=== PATIENT | female | born 1935 | race Caucasian/White ===

== ENCOUNTER 2018-05-19 11:57 | Inpatient (IN) | payer MEDICARE ==
[~2018-05-19] VITALS: Ht 167.6 cm; Wt 79.8 kg
[2018-05-19 13:31] VITALS: BP 193/57
[2018-05-19 15:00] VITALS: BP 179/71
[2018-05-19 15:41] LABS: BASO # 0.1 x10^3/uL (0.0-0.2); BASO % 1 % (0-3); EOS % 1 % (0-3); HEMATOCRIT 35.6 % (36.0-47.0); HEMOGLOBIN 11.8 g/dL (12.0-15.5); LYMPH # 1.7 x10^3/uL (1.0-4.8); LYMPH % 20 % (24-48); MEAN CORPUSCULAR HEMOGLOBIN 31 pg (25-35); MEAN CORPUSCULAR HGB CONC 33 g/dL (31-37); MEAN CORPUSCULAR VOLUME 95 fL (79-100); MONO # 0.6 x10^3/uL (0.0-1.1); MONO % 7 % (0-9); NEUT # 6.3 x10^3uL (1.8-7.7); NEUT % 72 % (31-73); PLATELET COUNT 285 x10^3/uL (140-400); RED BLOOD COUNT 3.74 x10^6/uL (3.50-5.40); RED CELL DISTRIBUTION WIDTH 13.3 % (11.5-14.5); WHITE BLOOD COUNT 8.8 x10^3/uL (4.0-11.0)
[2018-05-19 16:16] LABS: ALBUMIN 3.7 g/dL (3.4-5.0); CALCIUM 8.8 mg/dL (8.5-10.1); CREATININE 0.9 mg/dL (0.6-1.0); GFR 59.9; POTASSIUM 3.9 mmol/L (3.5-5.1); TOTAL BILIRUBIN 0.3 mg/dL (0.2-1.0); TOTAL PROTEIN 7.5 g/dL (6.4-8.2)
[2018-05-19 16:59] LABS: BILIRUBIN,URINE NEGATIVE (NEG); CLARITY,URINE CLEAR; COLOR,URINE YELLOW; NITRITE,URINE NEGATIVE (NEG); PROTEIN,URINE NEGATIVE (NEG-TRACE); UROBILINOGEN,URINE 0.2 mg/dL (0.2 mg/dL)
[2018-05-19 17:01] LABS: BACTERIA,URINE 0 /HPF (0-FEW); SQUAMOUS EPITHELIAL CELL,UR FEW /LPF; WBC,URINE OCC /HPF (0-4)
--- NOTE | 2018-05-19 17:38 | HP ---
ADMIT DATE: 05/19/2018 CHIEF COMPLAINT AND HISTORY OF PRESENT ILLNESS: This 83-year-old white female is well known to me from followup in the office. The patient was seen on the day of admission with symptoms beginning the prior. Symptoms were right facial as well as right arm and right leg numbness that would occur up to 15 minutes at a time. There was some weakness of at least the right leg associated with this. There was no particular speech deficit she noted with it. She had in the last 24 hours at least 5 or 6 of these episodes. She had taken aspirin the night prior to admission and feels like things have slowed down somewhat on the day of admission. She felt she was having crescendo TIAs, admitted for neurological consultation as well as imaging of heart, carotid arteries, head, etc. PAST MEDICAL HISTORY: Essentially unremarkable. She has no chronic medical problems home. MEDICATIONS: Basically some cokm-fix-oxpgokq preparations. ALLERGIES: She has no known drug allergies. SOCIAL HISTORY: She is nonsmoker, nondrinker, does not abuse alcohol. FAMILY HISTORY: Noncontributory. REVIEW OF SYSTEMS: As mentioned above. PHYSICAL EXAMINATION: GENERAL: She is well-developed, well-nourished, pleasant white female in no acute distress. VITAL SIGNS: Stable. She is afebrile. Blood pressure in the office is 130/85. HEAD, EYES, EARS, NOSE AND THROAT: Unremarkable. NECK: Supple without bruit or thyromegaly. I can hear no carotid bruits bilaterally. CHEST: Clear to auscultation and percussion. HEART: Regular rate and rhythm without S3, S4 or murmur. ABDOMEN: Soft, nontender, without hepatosplenomegaly or mass. EXTREMITIES: Without cyanosis, clubbing, or edema. NEUROLOGIC: She is intact. IMPRESSION: Crescendo transient ischemic attacks as described above. PLAN: The patient has been admitted. She has aspirin on board. Neurology has been consulted. Appropriate imaging is being obtained and the patient will be monitored, managed and treated appropriately. SHANTI LINDSEY MD DR: JARETH/elza JOB#: [id number] / [id number]
--- NOTE | 2018-05-19 19:00 | NUR ---
During walking report rounds with dayshift nurse, Dr. Henley is in room doing nuero check on Patient as she has c/o tinging and numbness to the right side of her face, neck, arm and leg which is aware off and has instructed this nurse to continue charting each episode as patient reports it thru out the night.
[2018-05-19 19:30] VITALS: BP 182/70
--- NOTE | 2018-05-19 20:30 | PDOC2 ---
NEUROLOGY CONSULT Date of Admission Date of Admission DATE: 05/19/18 TIME: 20:20 Reason for Consult Reason for Consult: IMPRESSION: Recurrent intermittent right side numbness and tingling x 4 days. CVA syndrome. TIA likely. HTN. Aortic A disease? RECOMMENDATIONS/PLAN: ASA 325 mg daily. Carotid A US + Doppler. Statin HS. Brain MRI w/o contrast. Echo. Lab: see orders. Control BP. HISTORY OF THE PRESENT ILLNESS: 83-y-old female patient stated no significant PMH developed symptoms of numbness and tingling in her right side of va face, UE and LE lasted 2-3 minutes each time the longest one lasted for 8-10 minutes multiple times a week in the past 4 days day. She was concerned about stroke, so she took 4 of baby ASA and came to [facility] to seek medical attention today. PAST MEDICAL HISTORY: Unremarkable. PAST SURGERY HISTORY: No major surgery recently. MEDICATIONS: Owlp-zus-rjoflyj preparations. ALLERGIES: No known drug allergies. FAMILY HISTORY: Noncontributory. MEDICATIONS: Refer to [facility] SOCIAL HISTORY: Lives at home. Denies smoking, drinking, and illicit drug use. REVIEW OF SYSTEMS: Constitutional: No malnutrition, weight loss, cachexia. Head: No traumatic brain or head injury. Skin: No edema, or rash. Ear: No infection. Eyes: No vision loss or color blindness. Nose: No bleeding or purulent discharges. Hearing: No hearing decrease. Neck: No injury. Breast: No history of cancer, masses,or discharges. Cardiac: HTN. Pulmonary: No COPD. GI: No GI ulcer, GI bleeding. Urinary/genital: UTI. Endocrinologic: No cousin face, craniofacial dysmorphism, polydactyly, goiter. Skeletomuscular: No muscular atrophy, deformity. Neurological: see HP. Psychiatric: Denies drug use/abuse. Otherwise, not [id number] review of systems. PHYSICAL EXAMINATION: General appearance is in no acute distress. HEENT: Normocephalic and nontraumatic. Eyes, nose, ears, and throat are unremarkable. Neck is supple. No lymphadenopathy. No crepitus. Cardiovascular: S1, S2, regular rate and rhythm. Pulmonary: Clear to auscultation bilaterally. Abdomen: Bowel sounds are positive. Abdomen is soft, nontender, and nondistended. Extremities: No rash, lesions, or edema. No restriction of range of motion NEUROLOGICAL EXAMINATION: Alert Oriented to time, place and person. PERRL. EOMI. CN: no focal findings. Muscle tone: within normal. Muscle strength: 5 DTR: 2 Plantar reflex: Flexor response bilaterally Gait: not examined in bed. Sensory exam: no abnormal findings. No cerebellar signs elicited. F-T-N test accurate. Current Medications Current Medications Current Medications Diphenhydramine HCl (Benadryl) 50 mg PRN QHS PRN PO INSOMNIA; Start 05/19/18 at 21:00 Multivitamins (Thera M Plus) 1 tab DAILY PO ; Start 05/20/18 at 09:00 Allergies Allergies: Allergies Coded Allergies Type Severity Reaction Last Updated Verified No Known Drug Allergies 05/19/18 No ROS Review of System The patient denies any associated fevers, chills, headache, ear pain, rhinorrhea , sore throat, stiff neck, productive cough, chest pain, shortness of breath, back or flank pain, abdominal pain, nausea, vomiting, diarrhea, constipation, dysuria, rash, numbness, weakness, tingling, incontinence, difficulty ambulating, or diaphoresis. Physical Exam Physical Exam General: Well developed, well nourished, no acute distress, well appearing HEENT: Pupils equally round and reactive to light, EOMI, no discharge, normal conjunctiva Neck: Supple, no nuchal rigidity, no JVD, trachea midline, no tenderness Cardiac: RRR, no murmurs, no gallops, no rubs Chest/Lungs: CTAB, no wheeze, no rhonchi, no crackles Abdomen: soft, non-distended, no guarding, no peritoneal signs, non-tender Back: No tenderness Extremities: no edema, pulses intact, non-tender,capillary refill <3 sec bilateral upper and lower extremities, Neuro: Alert and oriented x 4, no focal deficits, normal speech Vitals Vitals: Vital Signs Date Time Temp Pulse Resp B/P (MAP) Pulse Ox O2 Delivery O2 Flow Rate FiO2 05/19/18 19:30 98.5 74 20 182/70 (107) 97 Room Air 98.5 Labs Labs Laboratory Tests Test 05/19/18 15:35 05/19/18 16:20 White Blood Count 8.8 x10^3/uL (4.0-11.0) Red Blood Count 3.74 x10^6/uL (3.50-5.40) Hemoglobin 11.8 g/dL (12.0-15.5) Hematocrit 35.6 % (36.0-47.0) Mean Corpuscular Volume 95 fL (79-100) Mean Corpuscular Hemoglobin 31 pg (25-35) Mean Corpuscular Hemoglobin Concent 33 g/dL (31-37) Red Cell Distribution Width 13.3 % (11.5-14.5) Platelet Count 285 x10^3/uL (140-400) Neutrophils (%) (Auto) 72 % (31-73) Lymphocytes (%) (Auto) 20 % (24-48) Monocytes (%) (Auto) 7 % (0-9) Eosinophils (%) (Auto) 1 % (0-3) Basophils (%) (Auto) 1 % (0-3) Neutrophils # (Auto) 6.3 x10^3uL (1.8-7.7) Lymphocytes # (Auto) 1.7 x10^3/uL (1.0-4.8) Monocytes # (Auto) 0.6 x10^3/uL (0.0-1.1) Eosinophils # (Auto) 0.0 x10^3/uL (0.0-0.7) Basophils # (Auto) 0.1 x10^3/uL (0.0-0.2) Erythrocyte Sedimentation Rate 30 (0-25) Sodium Level 141 mmol/L (136-145) Potassium Level 3.9 mmol/L (3.5-5.1) Chloride Level 103 mmol/L (98-107) Carbon Dioxide Level 24 mmol/L (21-32) Anion Gap 14 (6-14) Blood Urea Nitrogen 27 mg/dL (7-20) Creatinine 0.9 mg/dL (0.6-1.0) Estimated GFR (Cockcroft-Gault) 59.9 BUN/Creatinine Ratio 30 (6-20) Glucose Level 109 mg/dL (70-99) Calcium Level 8.8 mg/dL (8.5-10.1) Total Bilirubin 0.3 mg/dL (0.2-1.0) Aspartate Amino Transf (AST/SGOT) 20 U/L (15-37) Alanine Aminotransferase (ALT/SGPT) 23 U/L (14-59) Alkaline Phosphatase 75 U/L (46-116) Total Protein 7.5 g/dL (6.4-8.2) Albumin 3.7 g/dL (3.4-5.0) Albumin/Globulin Ratio 1.0 (1.0-1.7) Vitamin B12 Level 477 pg/mL (247-911) Thyroid Stimulating Hormone (TSH) 3.422 uIU/mL (0.358-3.74) Urine Collection Type Unknown Urine Color Yellow Urine Clarity Clear Urine pH 6.0 Urine Specific [place] 1.025 Urine Protein Negative mg/dL (NEG-TRACE) Urine Glucose (UA) Negative mg/dL (NEG) Urine Ketones (Stick) Negative mg/dL (NEG) Urine Blood Negative (NEG) Urine Nitrite Negative (NEG) Urine Bilirubin Negative (NEG) Urine Urobilinogen Dipstick 0.2 mg/dL (0.2 mg/dL) Urine Leukocyte Esterase Negative (NEG) Urine RBC 1-2 /HPF (0-2) Urine WBC Occ /HPF (0-4) Urine Squamous Epithelial Cells Few /LPF Urine Bacteria 0 /HPF (0-FEW) Urine Mucus Mod /LPF Laboratory Tests Test 05/19/18 15:35 05/19/18 16:20 White Blood Count 8.8 x10^3/uL (4.0-11.0) Red Blood Count 3.74 x10^6/uL (3.50-5.40) Hemoglobin 11.8 g/dL (12.0-15.5) Hematocrit 35.6 % (36.0-47.0) Mean Corpuscular Volume 95 fL (79-100) Mean Corpuscular Hemoglobin 31 pg (25-35) Mean Corpuscular Hemoglobin Concent 33 g/dL (31-37) Red Cell Distribution Width 13.3 % (11.5-14.5) Platelet Count 285 x10^3/uL (140-400) Neutrophils (%) (Auto) 72 % (31-73) Lymphocytes (%) (Auto) 20 % (24-48) Monocytes (%) (Auto) 7 % (0-9) Eosinophils (%) (Auto) 1 % (0-3) Basophils (%) (Auto) 1 % (0-3) Neutrophils # (Auto) 6.3 x10^3uL (1.8-7.7) Lymphocytes # (Auto) 1.7 x10^3/uL (1.0-4.8) Monocytes # (Auto) 0.6 x10^3/uL (0.0-1.1) Eosinophils # (Auto) 0.0 x10^3/uL (0.0-0.7) Basophils # (Auto) 0.1 x10^3/uL (0.0-0.2) Erythrocyte Sedimentation Rate 30 (0-25) Sodium Level 141 mmol/L (136-145) Potassium Level 3.9 mmol/L (3.5-5.1) Chloride Level 103 mmol/L (98-107) Carbon Dioxide Level 24 mmol/L (21-32) Anion Gap 14 (6-14) Blood Urea Nitrogen 27 mg/dL (7-20) Creatinine 0.9 mg/dL (0.6-1.0) Estimated GFR (Cockcroft-Gault) 59.9 BUN/Creatinine Ratio 30 (6-20) Glucose Level 109 mg/dL (70-99) Calcium Level 8.8 mg/dL (8.5-10.1) Total Bilirubin 0.3 mg/dL (0.2-1.0) Aspartate Amino Transf (AST/SGOT) 20 U/L (15-37) Alanine Aminotransferase (ALT/SGPT) 23 U/L (14-59) Alkaline Phosphatase 75 U/L (46-116) Total Protein 7.5 g/dL (6.4-8.2) Albumin 3.7 g/dL (3.4-5.0) Albumin/Globulin Ratio 1.0 (1.0-1.7) Vitamin B12 Level 477 pg/mL (247-911) Thyroid Stimulating Hormone (TSH) 3.422 uIU/mL (0.358-3.74) Urine Collection Type Unknown Urine Color Yellow Urine Clarity Clear Urine pH 6.0 Urine Specific [place] 1.025 Urine Protein Negative mg/dL (NEG-TRACE) Urine Glucose (UA) Negative mg/dL (NEG) Urine Ketones (Stick) Negative mg/dL (NEG) Urine Blood Negative (NEG) Urine Nitrite Negative (NEG) Urine Bilirubin Negative (NEG) Urine Urobilinogen Dipstick 0.2 mg/dL (0.2 mg/dL) Urine Leukocyte Esterase Negative (NEG) Urine RBC 1-2 /HPF (0-2) Urine WBC Occ /HPF (0-4) Urine Squamous Epithelial Cells Few /LPF Urine Bacteria 0 /HPF (0-FEW) Urine Mucus Mod /LPF CHANG HOOD MD May 19, 2018 20:30
[2018-05-19] MEDS ORDERED: diphenhydrAMINE HCL 25 MG CAPSULE PO PRN (21:00)
--- NOTE | 2018-05-19 21:00 | NUR ---
Patient had another episode and c/o having some numbness and tinging to her right side of her face and neck for a few minutes and then it subsided.
[2018-05-19 23:49] VITALS: BP 167/57
--- NOTE | 2018-05-20 01:40 | NUR ---
Patient called again and reported that she again had an episode of having some numbness and tinging on her face and neck, this nurse assess patient each time she called and she has clear speech, no facial drooping, she is up with slow steady gait noted, does c/o some head ache which is tolerable at a 2 to 3 on a scale of 0 to 10 with 10 being the worst and always hungry, food provide and she blames it on lack of sleep, Benadryl administered as order but not effective per patient statement, "I think part of it is because this is just not home."
[2018-05-20 03:24] VITALS: BP 150/49
[2018-05-20 05:01] LABS: CHOLESTEROL/HDL RATIO 3.7
[2018-05-20 07:25] VITALS: BP 177/65
--- NOTE | 2018-05-20 07:55 | RAD ---
EXAM: Carotid Doppler sonogram. HISTORY: Transient ischemic attack. TECHNIQUE: [place] scale and color Doppler sonographic evaluation of the neck with spectral waveform analysis was performed and static images are submitted for review. FINDINGS: There is kbci-ii-arbybdvr atherosclerotic plaque within the carotid bulbs and proximal internal and external carotid arteries. The peak systolic velocity within the right common carotid artery is 130 cm/sec. The peak systolic velocity within the right internal carotid artery is 88 cm/sec and the end diastolic velocity within the right internal carotid artery is 30 cm/sec. The right ICA/CCA ratio is 1.0. The peak systolic velocity within the left common carotid artery is 93 cm/sec. The peak systolic velocity within the left internal carotid artery is 91 cm/sec and the end diastolic velocity within the left internal carotid artery is 32 cm/sec. The left ICA/CCA ratio is 1.0. There is normal antegrade flow within both vertebral arteries. There is an elevated peak systolic velocity within the right external carotid artery measuring 237 cm/s. IMPRESSION: 1. No Doppler evidence of hemodynamically significant stenosis within the internal carotid or vertebral arteries. 2. Elevated peak systolic velocity within the right external carotid artery, suggesting hemodynamically significant stenosis. PQRS Compliance Statement - Stenosis calculations for CT, MR and conventional angiography are based upon measurement of the distal ICA diameter in accordance with the NASCET methodology. Stenosis calculations for carotid ultrasound studies are derived from validated velocity criteria which are known to correlate with the NASCET methodology. Electronically signed by: Fela Wallace MD (05/20/2018 7:50 AM) [id number]
[2018-05-20] MEDS ORDERED: ACETAMINOPHEN 325 MG TABLET. PO PRN (09:00)
--- NOTE | 2018-05-20 10:28 | RAD ---
EXAM: Brain MRI without contrast. HISTORY: Right arm numbness. TECHNIQUE: Multiplanar, multisequence magnetic resonance imaging of the brain was performed without contrast. COMPARISON: None. FINDINGS: There is no restricted diffusion to suggest acute or subacute infarction. There are few tiny foci of susceptibility effect within the occipital lobes which may be artifactual or due to chronic microhemorrhage. There is no mass effect or midline shift. There is no hydrocephalus. There are nonspecific foci of signal change within the cerebral white matter, likely due to chronic small vessel disease. There is evidence of lens surgery. There is a tiny right maxillary sinus because retention cyst. The mastoid air cells are clear. There are normal flow voids within the cerebral vessels. IMPRESSION: 1. No acute intracranial finding. 2. Scattered foci of signal change within the cerebral white matter, a nonspecific finding likely due to chronic small vessel disease. Electronically signed by: Fela Wallace MD (05/20/2018 10:25 AM) [id number]
[2018-05-20 11:36] VITALS: BP 156/58
--- NOTE | 2018-05-20 12:42 | CARD ---
MR#: [id number] Date of Study: 05/20/2018 Ordering Physician: SHANTI LINDSEY, Referring Physician: SHANTI LINDSEY, Tech: Neda Dallas SALVADOR APPROVED REPORT EXAM: Two-dimensional and M-mode echocardiogram with Doppler and color Doppler. Other Information Quality : GoodHR: 71bpm Rhythm : NSR INDICATION CVA/TIA 2D DIMENSIONS RVDd3.0 (2.9-3.5cm)Left Atrium(2D)3.6 (1.6-4.0cm) IVSd1.0 (0.7-1.1cm)Aortic Root(2D)2.7 (2.0-3.7cm) LVDd4.7 (3.9-5.9cm)LVOT Diameter1.8 (1.8-2.4cm) PWd0.7 (0.7-1.1cm)LVDs2.7 (2.5-4.0cm) FS (%) 42.9 %SV75.9 ml LVEF(%)70.0 (>50%) M-Mode DIMENSIONS Left Atrium(MM)4.07 (2.5-4.0cm)Aortic Root2.86 (2.2-3.7cm) Aortic Valve AoV Peak Daniel.125.6cm/sAoV VTI24.1cm AO Peak GR.6.3mmHgLVOT Peak Daniel.90.9cm/s AO Mean GR.2mmHgAVA (VMAX)1.76cm2 DEISY (VTI)1.60nn8OR P 1/2 Iwkt636te Mitral Valve MV E Gwxeboni405.4cm/sMV DECEL TANW609rk MV A Wwwzvyuk58.8cm/sE/A Ratio1.7 MV A Safjaglh49ei Pulmonary Valve PV Peak Nivuitdp99.8cm/s Tricuspid Valve TR P. Ncblmkml295wn/sRAP IQOHZHXU9zwCg TR Peak Gr.62quYcPMMS55duZy LEFT VENTRICLE The left ventricle is normal size. There is normal left ventricular wall thickness. The left ventricu lar systolic function is normal and the ejection fraction is within normal range. The Ejection Fracti on is 65-70%. There is normal LV segmental wall motion. Transmitral Doppler flow pattern is Grade II- pseudonormal filling dynamics. RIGHT VENTRICLE The right ventricle is normal size. There is normal right ventricular wall thickness. The right ventr icular systolic function is normal. ATRIA The left atrium size is normal. The right atrium size is normal. The interatrial septum is intact wit h no evidence for an atrial septal defect or patent foramen ovale as noted on 2-D or Doppler imaging. AORTIC VALVE The aortic valve is calcified but opens well. The aortic valve is trileaflet. Doppler and Color Flow revealed mild aortic regurgitation. There is no significant aortic valvular stenosis. There is no aor tic valvular vegetation. MITRAL VALVE The mitral valve is normal in structure and function. A borderline mitral valve prolapse is present. There is no mitral valve stenosis. Doppler and Color-flow revealed trace mitral regurgitation. TRICUSPID VALVE The tricuspid valve is normal in structure and function. Doppler and Color Flow revealed trace to mil d tricuspid regurgitation.There is mild pulmonary hypertension.The PA pressure was estimated at 36 mm Hg. There is no tricuspid valve prolapse or vegetation. There is no tricuspid valve stenosis. PULMONIC VALVE The pulmonic valve is not well visualized. Doppler and Color Flow revealed no pulmonic valvular regur gitation. There is no pulmonic valvular stenosis. GREAT VESSELS The aortic root is normal in size. The ascending aorta is normal in size. The IVC is normal in size a nd collapses >50% with inspiration. PERICARDIAL EFFUSION There is no evidence of significant pericardial effusion. Critical Notification Critical Value: No <Conclusion> The left ventricular systolic function is normal and the ejection fraction is within normal range. Th e Ejection Fraction is 65-70%. There is normal LV segmental wall motion. Doppler and Color Flow revealed mild aortic regurgitation. Doppler and Color Flow revealed trace to mild tricuspid regurgitation.There is mild pulmonary hyperte nsion.The PA pressure was estimated at 36 mmHg. Signed by : Negro Roldan, Electronically Approved : 05/20/2018 12:42:02
[2018-05-20] MEDS: ASPIRIN 325 MG TABLET PO SCH (12:47)
[2018-05-20] MEDS: MULTIVITAMIN with MINERAL TABLET. PO SCH (12:47)
--- NOTE | 2018-05-20 14:45 | NUR ---
Received report from night nurse that patient will be NPO prior to imaging procedure. Patient underwent MRI and 2d echo this morning. Morning meds given during lunch. She reports 2 episodes of numbness and tingling of her right face, arm and leg which lasted for 5 minutes and spontaneously resolved at 1300, assessment reveals no facial droop, focal weakness/ sensory deficits. Patient has clear speech, pupils brisk, reactive. Neuro service came at 1400 and assessed patient. We will continue to monitor.
[2018-05-20 15:00] VITALS: BP 143/65
--- NOTE | 2018-05-20 17:21 | PDOC ---
PROGRESS NOTES Assessment Assessment Recurrent intermittent right side numbness and tingling x 4 days before admission. HTN. HLD. Right maxillary retention cyst. No evidence of acute CVA this time. RECOMMENDATIONS/PLAN: CCT w/o contrast. ASA 325 mg daily. Zocor 20 mg HS. Neurontin 100 mg bid. Control BP. Treat medical diseases. HISTORY OF THE PRESENT ILLNESS: 83-y-old female patient stated no significant PMH developed symptoms of numbness and tingling in her right side of va face, UE and LE lasted 2-3 minutes each time the longest one lasted for 8-10 minutes multiple times a week in the past 4 days day. She was concerned about stroke, so she took 4 of baby ASA and came to [facility] to seek medical attention today. PAST MEDICAL HISTORY: Unremarkable. PAST SURGERY HISTORY: No major surgery recently. MEDICATIONS: Ejly-tvt-nuwuemz preparations. ALLERGIES: No known drug allergies. FAMILY HISTORY: Noncontributory. MEDICATIONS: Refer to [facility] SOCIAL HISTORY: Lives at home. Denies smoking, drinking, and illicit drug use. REVIEW OF SYSTEMS: Constitutional: No malnutrition, weight loss, cachexia. Head: No traumatic brain or head injury. Skin: No edema, or rash. Ear: No infection. Eyes: No vision loss or color blindness. Nose: No bleeding or purulent discharges. Hearing: No hearing decrease. Neck: No injury. Breast: No history of cancer, masses,or discharges. Cardiac: HTN. Pulmonary: No COPD. GI: No GI ulcer, GI bleeding. Urinary/genital: UTI. Endocrinologic: No cousin face, craniofacial dysmorphism, polydactyly, goiter. Skeletomuscular: No muscular atrophy, deformity. Neurological: see HP. Psychiatric: Denies drug use/abuse. Otherwise, not [id number] review of systems. PHYSICAL EXAMINATION: General appearance is in no acute distress. HEENT: Normocephalic and nontraumatic. Eyes, nose, ears, and throat are unremarkable. Neck is supple. No lymphadenopathy. No crepitus. Cardiovascular: S1, S2, regular rate and rhythm. Pulmonary: Clear to auscultation bilaterally. Abdomen: Bowel sounds are positive. Abdomen is soft, nontender, and nondistended. Extremities: No rash, lesions, or edema. No restriction of range of motion NEUROLOGICAL EXAMINATION: Alert Oriented to time, place and person. PERRL. EOMI. CN: no focal findings. Muscle tone: within normal. Muscle strength: 5 DTR: 2 Plantar reflex: Flexor response bilaterally Gait: not examined in bed. Sensory exam: no abnormal findings. No cerebellar signs elicited. F-T-N test accurate. Objective Objective Vital Signs Date Time Temp Pulse Resp B/P (MAP) Pulse Ox O2 Delivery O2 Flow Rate FiO2 05/20/18 15:00 97.7 73 18 143/65 (91) 96 Room Air 97.7 Intake and Output 05/20/18 07:00 Intake Total 550 ml Balance 550 ml Intake Oral 550 ml # Voids 2 Vitals Signs Vitals VS - Last 72 Hours, by Label Date Time Temp Pulse Resp B/P (MAP) Pulse Ox O2 Delivery O2 Flow Rate FiO2 05/20/18 15:00 97.7 73 18 143/65 (91) 96 Room Air 97.7 05/20/18 11:36 97.7 69 18 156/58 (90) 97 Room Air 97.7 05/20/18 08:00 Room Air 05/20/18 07:25 97.9 72 18 177/65 (102) 96 Room Air 97.9 05/20/18 03:24 98.1 82 18 150/49 (82) 95 Room Air 98.1 05/19/18 23:49 98.4 77 20 167/57 (93) 94 Room Air 98.4 05/19/18 20:00 Room Air 05/19/18 19:30 98.5 74 20 182/70 (107) 97 Room Air 98.5 05/19/18 15:00 97.5 72 16 179/71 (107) 98 Room Air 97.5 05/19/18 13:31 97.5 74 18 193/57 (102) 98 Room Air 97.5 Laboratory Laboratory Laboratory Tests Test 05/20/18 03:20 Triglycerides Level 49 mg/dL (0-150) Cholesterol Level 230 mg/dL (0-200) LDL Cholesterol, Calculated 158 mg/dL (0-100) VLDL Cholesterol, Calculated 10 mg/dL (0-40) Non-HDL Cholesterol Calculated 168 mg/dL (0-129) HDL Cholesterol 62 mg/dL (40-60) Cholesterol/HDL Ratio 3.7 Medication Medications Current Medications Acetaminophen (Tylenol) 650 mg PRN Q6HRS PRN PO headache Last administered on 12:47; Start 05/20/18 at 09:00 Aspirin (Manuel Aspirin) 325 mg DAILYWBKFT PO Last administered on 05/20/18 12: 47; Start 05/20/18 at 08:00 Diphenhydramine HCl (Benadryl) 50 mg PRN QHS PRN PO INSOMNIA Last administered on 05/19/18 22:51; Start 05/19/18 at 21:00 Multivitamins (Thera M Plus) 1 tab DAILY PO Last administered on 05/20/18 12: 47; Start 05/20/18 at 09:00 Simvastatin (Zocor) 20 mg HS PO ; Start 05/20/18 at 21:00 Zolpidem Tartrate (Ambien) 5 mg PRN QHS PRN PO INSOMNIA; Start 05/20/18 at 09: 00 Comment Review of Relevant I have reviewed the following items vernon (where applicable) has been applied. CHANG HOOD MD May 20, 2018 17:21
--- NOTE | 2018-05-20 18:04 | NUR ---
Paged Attending at 1730, updated with patient's BP trend and diagnostic tests. No new orders received; will continue to monitor patient.
[2018-05-20 19:55] VITALS: BP 169/70
--- NOTE | 2018-05-20 20:46 | PDOC ---
GENERAL General: vss and afebrile. awake and alert. ongoing episodes of right sided numbness. bp little elevated. MRI head negative, carotid dopplers negative, and echo normal. neuro help appreciated. chest clear, heart regular, and abdomen benign. neuro nonfocal. await ct cervical spine and will consider EEG if no answer there. VITAL SIGNS Vital Signs: Vital Signs Date Time Temp Pulse Resp B/P (MAP) Pulse Ox O2 Delivery O2 Flow Rate FiO2 05/20/18 19:55 98.0 76 20 169/70 (103) 96 Room Air 98.0 I & O I & O Intake and Output 05/20/18 07:00 Intake Total 550 ml Balance 550 ml Intake Oral 550 ml # Voids 2 ALLERGIES Allergies: Allergies Coded Allergies Type Severity Reaction Last Updated Verified No Known Drug Allergies 05/19/18 No MEDS Medications: Current Medications Medications (Trade) Dose Ordered Sig/Ramon Start Time Stop Time Status Last Admin Dose Admin Acetaminophen (Tylenol) 650 mg PRN Q6HRS PRN 05/20/18 09:00 05/20/18 12:47 650 MG Aspirin (Manuel Aspirin) 325 mg [id number] 05/20/18 08:00 05/20/18 12:47 325 MG Diphenhydramine HCl (Benadryl) 50 mg PRN QHS PRN 05/19/18 21:00 05/19/18 22:51 50 MG Gabapentin (Neurontin) 100 mg BID 05/20/18 21:00 Multivitamins (Thera M Plus) 1 tab DAILY 05/20/18 09:00 05/20/18 12:47 1 TAB Simvastatin (Zocor) 20 mg HS 05/20/18 21:00 Zolpidem Tartrate (Ambien) 5 mg PRN QHS PRN 05/20/18 09:00 LAB Lab: Laboratory Tests Test 05/20/18 03:20 Triglycerides Level 49 mg/dL (0-150) Cholesterol Level 230 mg/dL (0-200) LDL Cholesterol, Calculated 158 mg/dL (0-100) VLDL Cholesterol, Calculated 10 mg/dL (0-40) Non-HDL Cholesterol Calculated 168 mg/dL (0-129) HDL Cholesterol 62 mg/dL (40-60) Cholesterol/HDL Ratio 3.7 SHANTI LINDSEY MD May 20, 2018 20:46
[2018-05-20] MEDS: ZOLPIDEM 5 MG TABLET. PO PRN (21:14)
[2018-05-20] MEDS: SIMVASTATIN 20 MG TABLET PO SCH (21:14)
[2018-05-20] MEDS: GABAPENTIN 100 MG CAPSULE. PO SCH (21:14)
[2018-05-20 23:18] VITALS: BP 141/49
[2018-05-21 07:15] VITALS: BP 152/65
[2018-05-21] MEDS: ASPIRIN 325 MG TABLET PO SCH (08:00)
--- NOTE | 2018-05-21 08:14 | RAD ---
CT of the cervical spine without contrast, 05/20/2018: HISTORY: Right-sided tingling Noncontrast scans were obtained with multiplanar reconstructions produced. No fracture or subluxation is identified. There are moderate hypertrophic degenerative changes involving multiple facet joints bilaterally. There is moderate disc space narrowing with anterior and posterior marginal spurring at C5-6 and C6-7. At C5-6 there is mild to moderate posterior disc protrusion at the midline narrowing the thecal sac to down to an AP diameter of 5-6 mm at the midline. There is mild right foraminal encroachment due to the spurring at this level. The posterior disc margin at C6-7 is not clearly visualized due to artifacts, however, there is a suggestion of right lateral disc protrusion encroaching upon the right neural foramina. There is mild left foraminal narrowing at this level. There appears to be mild central spinal stenosis at this level. There is mild posterior disc bulging at C3-4. The central spinal canal is well maintained. There is mild to moderate bony foraminal narrowing on the right. At C4-5 there is mild posterior disc bulging and marginal spurring. There is borderline narrowing of the central spinal canal. IMPRESSION: 1. Moderate multilevel degenerative change as described above. 2. Moderate associated central spinal stenosis at C5-6. 3. Mild central spinal stenosis at C6-7 with probable right lateral disc protrusion at that level. 4. MR scanning is suggested for further evaluation, if clinically indicated. PQRS Compliance Statement: One or more of the following individualized dose reduction techniques were utilized for this examination: 1. Automated exposure control 2. Adjustment of the mA and/or kV according to patient size 3. Use of iterative reconstruction technique Electronically signed by: Gonzalo Combs MD (05/21/2018 8:11 AM) [facility]
[2018-05-21] MEDS: GABAPENTIN 100 MG CAPSULE. PO SCH ×2 (08:53→20:22)
[2018-05-21] MEDS: MULTIVITAMIN with MINERAL TABLET. PO SCH (08:54)
[2018-05-21] MEDS ORDERED: ANTI-COAG MONITOR BY PHARMACY. MC PRN (09:00)
[2018-05-21] MEDS: APIXABAN 5 MG TABLET. PO SCH ×2 (09:31→20:22)
[2018-05-21 11:04] VITALS: BP 136/61
--- NOTE | 2018-05-21 11:39 | PDOC ---
Provider Note Provider Note MRI ordered will see patient when MRI complete MARY CANELA MD May 21, 2018 11:39
--- NOTE | 2018-05-21 12:08 | NUR ---
Attempted to coordinate MRA imaging per Dr. Mcgee's free text nursing order, however, when this nurse contacted MRI personnel they indicated need for authorization by neurology thus Dr. Henley contacted, who advised against imaging and asked to contact Dr. Paniagua. Dr Hicks was supervisor operations and advised contacting Dr. Henley. With this, Dr. Mcgee was contacted by phone for clarification on communication/authorization protocol for imaging procedures. Advised contacting Dr. Henley to coordinate.
[2018-05-21] MEDS ORDERED: GADOBUTROL 7.5 MMOL/7.5 ML VIAL IV ONE (12:45)
--- NOTE | 2018-05-21 13:12 | RAD ---
EXAM: Cervical spine MRI without contrast. HISTORY: Stenosis. TECHNIQUE: Multiplanar, multisequence magnetic resonance imaging of the cervical spine was performed without contrast. COMPARISON: CT dated 05/20/2018. FINDINGS: There is cervical kyphosis centered at C5-C6. There is minimal anterolisthesis of C3 on C4 and C4 on C5. There is degenerative endplate remodeling with disc space narrowing, osteophytosis and Schmorl's node formation at C5-C6 and C6-C7. There are few incidental osseous hemangiomas. There is no suspicious osseous lesion. There is no acute or subacute fracture. The posterior fossa and skull base are unremarkable. There is deformation of the cervical spinal cord at multiple levels due to central canal stenosis. No spinal cord signal abnormality is seen. At C2-C3, there is moderate right facet arthropathy. There is no stenosis. At C3-C4, there is a shallow broad-based posterior central disc protrusion. There is moderate right greater than left facet arthropathy. There is mild right foraminal stenosis. At C4-C5, there is a shallow left paracentral disc protrusion which deforms the left ventral aspect of the spinal cord. The superimposed on endplate remodeling. There is mild bilateral facet arthropathy. There is mild central canal stenosis measuring 9.0 mm in anterior posterior dimension. At C5-C6, there is a disc bulge and endplate osteophytosis. There is mild facet arthropathy. There is uncovertebral arthropathy. There is severe right foraminal stenosis. There is flattening of the ventral aspect of the spinal cord and moderate central canal stenosis measuring 7.1 mm in anterior posterior dimension. At C6-C7, there is a disc bulge and endplate osteophytosis. There is mild right facet arthropathy. There is uncovertebral body. There is mild bilateral foraminal stenosis. There is flattening of the ventral aspect of the spinal cord and mild central canal stenosis measuring 9.0 mm in anterior posterior dimension. IMPRESSION: 1. Multilevel degenerative change within the cervical spine, described in detail above. This results in mild right foraminal stenosis at C3-C4, mild central canal stenosis at C4-C5, severe right foraminal and moderate central canal stenosis at C5-C6, and mild bilateral foraminal and central canal stenosis at C6-C7. 2. Mild cervical kyphosis. Electronically signed by: Fela Wallace MD (05/21/2018 1:09 PM) [email or web address]
--- NOTE | 2018-05-21 13:18 | RAD ---
EXAM: Brain MRI with contrast. HISTORY: Right-sided facial numbness. TECHNIQUE: Multiplanar, multisequence magnetic resonance imaging of the brain was performed following the administration of 70 cc Gadavist intravenous contrast. COMPARISON: Noncontrast images of the brain obtained one day prior. FINDINGS: No suspicious enhancing lesion is seen. There is no mass effect or midline shift. There is no hydrocephalus. IMPRESSION: 1. No acute intracranial finding or abnormal enhancing intracranial lesion. 2. Please refer to the separate report for the noncontrast brain and right obtained one day prior for additional findings. Electronically signed by: Fela Wallace MD (05/21/2018 1:15 PM) [email or web address]
[2018-05-21 15:09] VITALS: BP 177/67
--- NOTE | 2018-05-21 16:00 | NUR ---
SW following pt for anticipated dc needs. Chart reviewed. Pt is from home. RN advised no SW needs at this time. SW requested DAVE Barry to order PT/OT eval and tx order as recommended by rehab screen. Will continue to assess needs.
--- NOTE | 2018-05-21 17:14 | PDOC ---
PROGRESS NOTES Assessment Assessment Recurrent intermittent right side numbness and tingling x 4 days before admission. HTN. HLD. Right maxillary retention cyst which may cause symptoms in her right side of face. 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 No evidence of acute CVA this time. No evidence of brain tumor. RECOMMENDATIONS/PLAN: ASA 325 mg daily. Zocor 20 mg HS. Neurontin 200 mg tid. Control BP. Treat medical diseases. Consulted NS for C-spine stenosis. See ENT as outpatient. FU with PCP. HISTORY OF THE PRESENT ILLNESS: 83-y-old female patient stated no significant PMH developed symptoms of numbness and tingling in her right side of the face, UE and LE lasted 2-3 minutes each time the longest one lasted for 8-10 minutes multiple times a week in the past 4 days day. She was concerned about stroke, so she took 4 of baby ASA and came to [facility] to seek medical attention today. PAST MEDICAL HISTORY: Unremarkable. PAST SURGERY HISTORY: No major surgery recently. MEDICATIONS: Wihn-pjd-ghenynh preparations. ALLERGIES: No known drug allergies. FAMILY HISTORY: Noncontributory. MEDICATIONS: Refer to MAR SOCIAL HISTORY: Lives at home. Denies smoking, drinking, and illicit drug use. REVIEW OF SYSTEMS: Constitutional: No malnutrition, weight loss, cachexia. Head: No traumatic brain or head injury. Skin: No edema, or rash. Ear: No infection. Eyes: No vision loss or color blindness. Nose: No bleeding or purulent discharges. Hearing: No hearing decrease. Neck: No injury. Breast: No history of cancer, masses,or discharges. Cardiac: HTN. Pulmonary: No COPD. GI: No GI ulcer, GI bleeding. Urinary/genital: UTI. Endocrinologic: No cousin face, craniofacial dysmorphism, polydactyly, goiter. Skeletomuscular: No muscular atrophy, deformity. Neurological: see HP. Psychiatric: Denies drug use/abuse. Otherwise, not [id number] review of systems. PHYSICAL EXAMINATION: General appearance is in no acute distress. HEENT: Normocephalic and nontraumatic. Eyes, nose, ears, and throat are unremarkable. Neck is supple. No lymphadenopathy. No crepitus. Cardiovascular: S1, S2, regular rate and rhythm. Pulmonary: Clear to auscultation bilaterally. Abdomen: Bowel sounds are positive. Abdomen is soft, nontender, and nondistended. Extremities: No rash, lesions, or edema. No restriction of range of motion NEUROLOGICAL EXAMINATION: Alert Oriented to time, place and person. PERRL. EOMI. CN: no focal findings. Muscle tone: within normal. Muscle strength: 5 DTR: 2 Plantar reflex: Flexor response bilaterally Gait: not examined in bed. Sensory exam: no abnormal findings. No cerebellar signs elicited. F-T-N test accurate. Objective Objective Vital Signs Date Time Temp Pulse Resp B/P (MAP) Pulse Ox O2 Delivery O2 Flow Rate FiO2 05/21/18 15:09 97.8 70 18 177/67 (103) 98 Room Air 97.8 Intake and Output 05/21/18 07:00 Intake Total 700 ml Balance 700 ml Intake Oral 700 ml Vitals Signs Vitals VS - Last 72 Hours, by Label Date Time Temp Pulse Resp B/P (MAP) Pulse Ox O2 Delivery O2 Flow Rate FiO2 05/21/18 15:09 97.8 70 18 177/67 (103) 98 Room Air 97.8 05/21/18 11:04 97.8 77 18 136/61 (86) 97 Room Air 97.8 05/21/18 08:00 Room Air 05/21/18 07:15 97.9 66 16 152/65 (94) 96 Room Air 97.9 05/20/18 23:18 98.2 74 18 141/49 (79) 93 Room Air 98.2 05/20/18 20:00 Room Air 05/20/18 19:55 98.0 76 20 169/70 (103) 96 Room Air 98.0 05/20/18 15:00 97.7 73 18 143/65 (91) 96 Room Air 97.7 05/20/18 11:36 97.7 69 18 156/58 (90) 97 Room Air 97.7 05/20/18 08:00 Room Air 05/20/18 07:25 97.9 72 18 177/65 (102) 96 Room Air 97.9 Medication Medications Current Medications Apixaban (Eliquis) 5 mg BID PO Last administered on 05/21/18at 09:31; Start at 09:00 Gabapentin (Neurontin) 100 mg BID PO Last administered on 05/20/18at 21:14; Start 05/20/18 at 21:00; Stop 05/21/18 at 16:55; Status DC Gabapentin (Neurontin) 200 mg TID PO ; Start 05/21/18 at 21:00 Gadobutrol (Gadavist) 7 mmol 1X ONCE IV Last administered on 05/21/18at 13:04; Start 05/21/18 at 12:45; Stop 05/21/18 at 12:46; Status DC Info (Anti-Coagulation Monitoring By Pharmacy) 1 each PRN DAILY PRN MC SEE COMMENTS; Start 05/21/18 at 09:00 Simvastatin (Zocor) 20 mg HS PO Last administered on 05/20/18at 21:14; Start at 21:00 Comment Review of Relevant I have reviewed the following items vernon (where applicable) has been applied. CHANG HOOD MD May 21, 2018 17:14
--- NOTE | 2018-05-21 17:53 | EEG ---
DATE OF SERVICE: 05/21/2018 EEG NUMBER: [id number]. OBJECTIVE: This is an 83-year-old female patient with history of intermittent numbness, tingling in the right side of face, and stroke was ruled out. EEG was requested to help rule out partial seizure. METHODS: Twenty electrodes were applied according to the international 10-20 electrode placement system. EKG monitoring, hyperventilation, intermittent photic stimulation, monopolar and bipolar montages were routinely utilized. The record was obtained on a digital system with video monitoring. FINDINGS: 1. Background: The patient was recorded in the awake, drowsy, and sleep states. The overall background amplitude is 5-15 microvolts. A posterior dominant rhythm of 8 Hz is observed. 2. Abnormalities: No specific epileptiform discharge or electrographic seizure is seen. No focal or diffuse slowing. 3. Activation: Hyperventilation was performed with good efforts and normal response. Intermittent photic stimulation was performed with photic driving. Photoparoxysmal response noted. IMPRESSION: This EEG is within the normal limits of the study for the awake, drowsy, and sleep states. No focal, lateralizing, specific epileptiform discharge or electrographic seizure is seen. CHANG HOOD MD DR: DAX/elza JOB#: [id number] / [id number] [place]
[2018-05-21 19:56] VITALS: BP 175/62
[2018-05-21] MEDS: SIMVASTATIN 20 MG TABLET PO SCH (20:22)
--- NOTE | 2018-05-21 20:30 | PN ---
DATE: 05/21/2018 LOCATION: She is in room 663. SUBJECTIVE: The patient is awake, alert, continues to have ongoing spells of right-sided numbness, which involve arm, leg and face. OBJECTIVE: VITAL SIGNS: Stable. She is afebrile. GENERAL: She is awake and alert. LUNGS: Clear. HEART: Regular. ABDOMEN: Benign. NEUROLOGIC: Nonfocal. LABORATORY DATA: MRI of the head was negative. Carotid Dopplers were negative. Echocardiogram was negative. CT cervical spine pending, although I doubt this is the etiology with the facial numbness. IMPRESSION: Crescendo transient ischemic attack type of event. PLAN: I am going to add Eliquis today even though probably is not indicated to see if this would stop the process. In addition, I am going to request an MRI of the brain as well as EEG to rule out some sort of strange seizure activity. SHANTI LINDSEY MD DR: JARETH/elza JOB#: [id number] / [id number]
[2018-05-21] MEDS: ZOLPIDEM 5 MG TABLET. PO PRN (22:51)
[2018-05-21 23:31] VITALS: BP 166/55
--- NOTE | 2018-05-22 07:09 | NUR ---
Pt refusing 0400 vitals tonight and states wanting to sleep. Vitals have been wnl. No complaints noted. Pt ambulating in [place] with steady gait. Pt states having 1 episode of numbness and tingling on right side however still able to move arm without complaints.
[2018-05-22 07:45] VITALS: BP 172/57
[2018-05-22] MEDS: ASPIRIN 325 MG TABLET PO SCH (08:58)
[2018-05-22] MEDS: APIXABAN 5 MG TABLET. PO SCH ×2 (08:59→09:00)
[2018-05-22] MEDS: MULTIVITAMIN with MINERAL TABLET. PO SCH (08:59)
[2018-05-22] MEDS: GABAPENTIN 100 MG CAPSULE. PO SCH ×2 (08:59→15:13)
[2018-05-22] MEDS ORDERED: IOHEXOL 350 MG/ML 100 ML VIAL. IV ONE (09:30)
[2018-05-22] MEDS ORDERED: CONTRAST GIVEN. MC PRN (09:45)
[2018-05-22 10:57] VITALS: BP 181/62
--- NOTE | 2018-05-22 11:07 | NUR ---
Pt went down for MRA and was sent back because IV was not working. PIV removed without complications. New IV started in right wrist #[id number]. MRI notified.
--- NOTE | 2018-05-22 11:58 | NUR ---
Spoke with Dr. Henley at 0910 about imaging tests (MRA), clarified with attending MD who made rounds this morning. Order received for CT angio of the head. The patient refused her Eliquis, stating that her Dr discontinued it. Called Attending MD at 1150, clarified the eliquis. This nurse was told that he will discontinue the medicine and put patient on asprin 325. Patient likewise to be discharged home this afternnon after Dr Vinson evaluates the patient.
--- NOTE | 2018-05-22 12:08 | RAD ---
EXAM: CT angiogram of the head without and with intravenous contrast. HISTORY: Right-sided numbness. TECHNIQUE: Computed tomographic images the head were obtained prior to and following the administration of 75 cc Omnipaque 350 intravenous contrast. Three-dimensional maximum intensity projection images were obtained. *One or more of the following individualized dose reduction techniques were utilized for this examination: 1. Automated exposure control. 2. Adjustment of the mA and/or kV according to patient size. 3. Use of iterative reconstruction technique. COMPARISON: Brain MRI obtained on the same date and 1 day prior. FINDINGS: The noncontrast images demonstrate no evidence of hemorrhage. There is no mass effect or midline shift. There is no hydrocephalus. There is mild age-appropriate cerebral volume loss. There are subtle areas of hypodensity within the cerebral white matter, likely due to chronic small vessel disease. The angiographic portion of the exam demonstrates no evidence of hemodynamically significant stenosis involving the distal vertebral or internal carotid artery or intracranial arteries. The anterior to indicating arteries faintly seen. The posterior communicating arteries are likely developmentally absent. The left vertebral artery slightly dominant. No suspicious enhancing lesion is seen. There is evidence of lens surgery. 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 The visualized portions of the paranasal sinuses mastoid air cells are unremarkable. No calvarial lesion is seen. IMPRESSION: 1. No acute intracranial finding. 2. No evidence of hemodynamically significant stenosis or aneurysm involving the intracranial arteries. 3. Subtle areas of hypodensity within the cerebral white matter, most commonly due to chronic small vessel disease. This better assessed on the recent brain MRI. PQRS Compliance Statement - Stenosis calculations for CT, MR and conventional angiography are based upon measurement of the distal ICA diameter in accordance with the NASCET methodology. Stenosis calculations for carotid ultrasound studies are derived from validated velocity criteria which are known to correlate with the NASCET methodology. Electronically signed by: Fela Wallace MD (05/22/2018 12:05 PM) [email or web address]
[2018-05-22] MEDS ORDERED: ASPIRIN 325 MG TABLET PO SCH (15:00)
[2018-05-22 15:01] VITALS: BP 151/59
--- NOTE | 2018-05-22 15:07 | PDOC ---
PROGRESS NOTES Assessment Assessment Recurrent intermittent right side of face, UE and LE numbness and tingling x 4 days before admission. HTN. HLD. Right maxillary retention cyst which may cause symptoms in her right side of face. 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 No evidence of acute CVA this time. No evidence of brain tumor. No evidence of AVM or aneurysm. RECOMMENDATIONS/PLAN: ASA 325 mg daily. Zocor 20 mg HS. Neurontin 300 mg tid. Control BP. Treat medical diseases. Consulted NS for C-spine stenosis. See ENT as outpatient. FU with PCP. FU with Neurology as needed. HISTORY OF THE PRESENT ILLNESS: 83-y-old female patient stated no significant PMH developed symptoms of numbness and tingling in her right side of the face, UE and LE lasted 2-3 minutes each time the longest one lasted for 8-10 minutes multiple times a week in the past 4 days day. She was concerned about stroke, so she took 4 of baby ASA and came to [facility] to seek medical attention today. After extensive evaluation, still no etiology found to fully explain her symptoms of right side intermittent recurrent numbness and tingling. PAST MEDICAL HISTORY: Unremarkable. PAST SURGERY HISTORY: No major surgery recently. MEDICATIONS: Fbid-wab-jltynri preparations. ALLERGIES: No known drug allergies. FAMILY HISTORY: Noncontributory. MEDICATIONS: Refer to MAR SOCIAL HISTORY: Lives at home. Denies smoking, drinking, and illicit drug use. REVIEW OF SYSTEMS: Constitutional: No malnutrition, weight loss, cachexia. Head: No traumatic brain or head injury. Skin: No edema, or rash. Ear: No infection. Eyes: No vision loss or color blindness. Nose: No bleeding or purulent discharges. Hearing: No hearing decrease. Neck: No injury. Breast: No history of cancer, masses,or discharges. Cardiac: HTN. Pulmonary: No COPD. GI: No GI ulcer, GI bleeding. Urinary/genital: UTI. Endocrinologic: No cousin face, craniofacial dysmorphism, polydactyly, goiter. Skeletomuscular: No muscular atrophy, deformity. Neurological: see HP. Psychiatric: Denies drug use/abuse. Otherwise, not [id number] review of systems. PHYSICAL EXAMINATION: General appearance is in no acute distress. HEENT: Normocephalic and nontraumatic. Eyes, nose, ears, and throat are unremarkable. Neck is supple. No lymphadenopathy. No crepitus. Cardiovascular: S1, S2, regular rate and rhythm. Pulmonary: Clear to auscultation bilaterally. Abdomen: Bowel sounds are positive. Abdomen is soft, nontender, and nondistended. Extremities: No rash, lesions, or edema. No restriction of range of motion NEUROLOGICAL EXAMINATION: Alert Oriented to time, place and person. PERRL. EOMI. CN: no focal findings. Muscle tone: within normal. Muscle strength: 5 DTR: 2 Plantar reflex: Flexor response bilaterally Gait: Ay her baseline normal. Sensory exam: no abnormal findings. No cerebellar signs elicited. F-T-N test accurate. Objective Objective Vital Signs Date Time Temp Pulse Resp B/P (MAP) Pulse Ox O2 Delivery O2 Flow Rate FiO2 05/22/18 15:01 97.4 71 16 151/59 (89) 97 Room Air 97.4 Intake and Output 05/22/18 06:59 Intake Total 1780 ml Balance 1780 ml Intake Oral 1780 ml # Voids 5 Vitals Signs Vitals VS - Last 72 Hours, by Label Date Time Temp Pulse Resp B/P (MAP) Pulse Ox O2 Delivery O2 Flow Rate FiO2 05/22/18 15:01 97.4 71 16 151/59 (89) 97 Room Air 97.4 05/22/18 10:57 97.5 88 17 181/62 (101) 98 Room Air 97.5 05/22/18 08:00 Room Air 05/22/18 07:45 97.5 70 16 172/57 (95) 94 Room Air 97.5 05/22/18 03:11 Room Air 05/21/18 23:31 97.8 75 20 166/55 (92) 98 Room Air 97.8 05/21/18 20:00 Room Air 05/21/18 19:56 98.0 80 20 175/62 (99) 97 Room Air 98.0 05/21/18 15:09 97.8 70 18 177/67 (103) 98 Room Air 97.8 05/21/18 11:04 97.8 77 18 136/61 (86) 97 Room Air 97.8 05/21/18 08:00 Room Air 05/21/18 07:15 97.9 66 16 152/65 (94) 96 Room Air 97.9 Medication Medications Current Medications Gabapentin (Neurontin) 200 mg TID PO Last administered on 05/22/18at 08:59; Start 05/21/18 at 21:00 Info (CONTRAST GIVEN -- Rx MONITORING) 1 each PRN DAILY PRN MC SEE COMMENTS; Start 05/22/18 at 09:45; Stop 05/24/18 at 09:44 Iohexol (Omnipaque 350 Mg/ml) 75 ml 1X ONCE IV Last administered on 05/22/18at 11:40; Start 05/22/18 at 09:30; Stop 05/22/18 at 09:39; Status DC Comment Review of Relevant I have reviewed the following items vernon (where applicable) has been applied. CHANG HOOD MD May 22, 2018 15:07
--- NOTE | 2018-05-22 15:11 | NUR ---
Aspirin non administered at 1500, patient had her last dose this AM.
[2018-05-22] MEDS ORDERED: ASPI325T8 PO (15:22)
--- NOTE | 2018-05-22 15:59 | NUR ---
Received call from Dr. Henley at 1515 stating that patient's CTA of the head was normal. She was informed patient will be discharged this afternoon. Dr. Vinson was updated at 1500 regarding patient,said that patient can ff up as outpx.
--- NOTE | 2018-05-22 16:02 | NUR ---
Discharge Note: GEOVANNI ROBERTS [address] Discharge instructions and discharge home medications reviewed with patient and a copy given. All questions have been answered and understanding verbalized. The following instructions and handouts were given: Stroke prevention FF up with Dr. Mcgee in a week FF up with Dr. Vinson if needed. Discontinued lines and drains: peripheral IV intact, patient tolerated removal, no complication noted. Patient discharged to home with self-care, accompanied by friend via wheelchair. Addendum: 05/22/18 at 1723 by SAVANAH NI RN patient left the unit at 1640
--- NOTE | 2018-05-22 17:38 | PDOC ---
PROGRESS NOTES Assessment Assessment Recurrent intermittent right side of face, UE and LE numbness and tingling x 4 days before admission. HTN. HLD. Right maxillary retention cyst which may cause symptoms in her right side of face. 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 No evidence of acute CVA this time. No evidence of brain tumor. No evidence of AVM or aneurysm. RECOMMENDATIONS/PLAN: Continue ASA 325 mg daily. Continue Zocor 20 mg HS. Neurontin to 300 mg tid. Control BP. Treat medical diseases. Consulted NS for C-spine stenosis. See ENT as outpatient. FU with PCP. FU with Neurology as needed. HISTORY OF THE PRESENT ILLNESS: 83-y-old female patient stated no significant PMH developed symptoms of numbness and tingling in her right side of the face, UE and LE lasted 2-3 minutes each time the longest one lasted for 8-10 minutes multiple times a week in the past 4 days day. She was concerned about stroke, so she took 4 of baby ASA and came to [facility] to seek medical attention today. After extensive evaluation, still no etiology found to fully explain her symptoms of right side intermittent recurrent numbness and tingling. Patient's primary care physician was concerned about brain tumor and requested MRA. MRI with contrast is better to evaluate brain tumor, so it was ordered instead and discussed with patient's PCP. PCP prescribed Eliquis but concerned about aneurysm. CTA was performed and aneurysm is ruled out. PAST MEDICAL HISTORY: Unremarkable. PAST SURGERY HISTORY: No major surgery recently. MEDICATIONS: [id number] preparations. ALLERGIES: No known drug allergies. FAMILY HISTORY: Noncontributory. MEDICATIONS: Refer to MAR SOCIAL HISTORY: Lives at home. Denies smoking, drinking, and illicit drug use. REVIEW OF SYSTEMS: Constitutional: No malnutrition, weight loss, cachexia. Head: No traumatic brain or head injury. Skin: No edema, or rash. Ear: No infection. Eyes: No vision loss or color blindness. Nose: No bleeding or purulent discharges. Hearing: No hearing decrease. Neck: No injury. Breast: No history of cancer, masses,or discharges. Cardiac: HTN. Pulmonary: No COPD. GI: No GI ulcer, GI bleeding. Urinary/genital: UTI. Endocrinologic: No cousin face, craniofacial dysmorphism, polydactyly, goiter. Skeletomuscular: No muscular atrophy, deformity. Neurological: see HP. Psychiatric: Denies drug use/abuse. Otherwise, not [id number] review of systems. PHYSICAL EXAMINATION: General appearance is in no acute distress. HEENT: Normocephalic and nontraumatic. Eyes, nose, ears, and throat are unremarkable. Neck is supple. No lymphadenopathy. No crepitus. Cardiovascular: S1, S2, regular rate and rhythm. Pulmonary: Clear to auscultation bilaterally. Abdomen: Bowel sounds are positive. Abdomen is soft, nontender, and nondistended. Extremities: No rash, lesions, or edema. No restriction of range of motion NEUROLOGICAL EXAMINATION: Alert Oriented to time, place and person. PERRL. EOMI. CN: no focal findings. Muscle tone: within normal. Muscle strength: 5 DTR: 2 Plantar reflex: Flexor response bilaterally Gait: Ay her baseline normal. Sensory exam: no abnormal findings. No cerebellar signs elicited. F-T-N test accurate. Objective Objective Vital Signs Date Time Temp Pulse Resp B/P (MAP) Pulse Ox O2 Delivery O2 Flow Rate FiO2 05/22/18 15:01 97.4 71 16 151/59 (89) 97 Room Air 97.4 Intake and Output 05/22/18 07:00 Intake Total 1780 ml Balance 1780 ml Intake Oral 1780 ml # Voids 5 Vitals Signs Vitals VS - Last 72 Hours, by Label Date Time Temp Pulse Resp B/P (MAP) Pulse Ox O2 Delivery O2 Flow Rate FiO2 05/22/18 15:01 97.4 71 16 151/59 (89) 97 Room Air 97.4 05/22/18 10:57 97.5 88 17 181/62 (101) 98 Room Air 97.5 05/22/18 08:00 Room Air 05/22/18 07:45 97.5 70 16 172/57 (95) 94 Room Air 97.5 05/22/18 03:11 Room Air 05/21/18 23:31 97.8 75 20 166/55 (92) 98 Room Air 97.8 05/21/18 20:00 Room Air 05/21/18 19:56 98.0 80 20 175/62 (99) 97 Room Air 98.0 05/21/18 15:09 97.8 70 18 177/67 (103) 98 Room Air 97.8 05/21/18 11:04 97.8 77 18 136/61 (86) 97 Room Air 97.8 05/21/18 08:00 Room Air 05/21/18 07:15 97.9 66 16 152/65 (94) 96 Room Air 97.9 Medication Medications Current Medications Aspirin (Manuel Aspirin) 325 mg DAILYWBKFT PO ; Start 05/22/18 at 15:00 Gabapentin (Neurontin) 200 mg TID PO Last administered on 05/22/18at 15:13; Start 05/21/18 at 21:00 Info (CONTRAST GIVEN -- Rx MONITORING) 1 each PRN DAILY PRN MC SEE COMMENTS; Start 05/22/18 at 09:45; Stop 05/24/18 at 09:44 Iohexol (Omnipaque 350 Mg/ml) 75 ml 1X ONCE IV Last administered on 05/22/18at 11:40; Start 05/22/18 at 09:30; Stop 05/22/18 at 09:39; Status DC Comment Review of Relevant I have reviewed the following items vernon (where applicable) has been applied. CHANG HOOD MD May 22, 2018 17:38
[2018-05-22] MEDS ORDERED: GABAPENTIN 300 MG CAPSULE. PO SCH (21:00)
--- NOTE | 2018-06-04 22:25 | DS ---
DATE OF DISCHARGE: 05/22/2018 PRIMARY DIAGNOSIS: Crescendo transient ischemic attacks. ADDITIONAL DIAGNOSES: Right arm, leg and facial numbness; hypertension, hyperlipidemia. CHIEF COMPLAINT AND HISTORY OF PRESENT ILLNESS: This 83-year-old white female admitted through the office with symptoms beginning prior. She would have right facial as well as right arm and right leg numbness that would occur up to 15 minutes at a time. There was some weakness at least of the right leg with these spells, but no particular speech deficit noticed with it. She had at least 5-6 episodes in the past 24 hours, was admitted for further workup of the same. SUMMARY OF STAY: The patient was admitted. Neurology saw her in consultation. She had multiple studies done during the stay including a carotid Doppler showing no evidence of any hemodynamically significant stenosis. She had a brain MRI showing no acute intracranial findings. She had a cervical spine CT showing moderate multilevel degenerative changes, moderate associated central spinal stenosis at C5-C6, mild central spinal stenosis at C6-C7 with a probable right lateral disk protrusion at that level. She had a second MRI of the head with contrast showing no acute intracranial findings once again. Cervical spine MRI showed multilevel degenerative changes, had mild right foraminal stenosis at C3-C4, mild central spinal stenosis at C5-C6, severe right foraminal and moderate central canal stenosis at C5-C6 and mild bilateral foraminal and central canal stenosis at C6-C7 and mild cervical kyphosis. CTA of the head was also done and was negative. She had a negative echocardiogram, negative EEG. During the stay continued to have spells, although they seemed to slow down even up until the time of discharge. Neurology suggestions were that of an aspirin a day as well as adding Zocor to her regimen, controlling her blood pressure and they added Neurontin. They recommended neurosurgical consultation for cervical spinal stenosis. She was felt ready for discharge with close outpatient followup with Neurology, had no other suggestions on the day of discharge and this was accomplished. DISPOSITION: The patient is discharged to home, regular diet, activity as tolerated, office in the next week. DISCHARGE MEDICATIONS: Listed on the med rec and have been addressed. SHANTI LINDSEY MD DR: JARETH/elza JOB#: [id number] / [id number]
== END 2018-05-22 16:40 | disposition home or self-care (01) | DRG 69 ==
LOC: 6 SOUTH 13:03
PROVIDERS: ADMIT Family Medicine; ATTEND Family Medicine
DX: G45.8 Other transient cerebral ischemic attacks and related syndromes (principal); I10 Essential (primary) hypertension; E78.5 Hyperlipidemia, unspecified; M48.02 Spinal stenosis, cervical region; Z79.82 Long term (current) use of aspirin; Z79.899 Other long term (current) drug therapy
CPT/HCPCS: 36415; 70496; 70551; 70552; 72125; 72141; 80053; 80061; 81001; 82607; 84443; 85025; 85651; 93306; 93880; 95816; A9585; Q0163; Q9967

== ENCOUNTER → 2018-07-10 | Outpatient (CLI) | payer MEDICARE ==
[~2018-07-10] MED LIST: ASPI325T8 PO
--- NOTE | 2018-07-10 12:47 | RAD ---
EXAM: Bilateral knees, standing view. HISTORY: Pain. COMPARISON: None. FINDINGS: A frontal standing view both knees is obtained. There is no fracture, dislocation or subluxation. IMPRESSION: No acute osseous finding. Electronically signed by: Fela Wallace MD (07/10/2018 12:45 PM) [place] [id number]
--- NOTE | 2018-07-10 12:47 | RAD ---
EXAM: Right hip and pelvis, 3 views. HISTORY: Pain. COMPARISON: None. FINDINGS: A frontal view of the pelvis and frontal and frog-leg views the right hip are obtained. There is severe right hip joint space narrowing with degenerative subchondral sclerosis, subchondral cyst formation and marginal acetabular and femoral head osteophytosis. There is mild left hip joint space narrowing with degenerative marginal femoral head spurring. There is degenerative change involving the visualized lower lumbar spine. IMPRESSION: 1. 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 2. Degenerative change involving the lower lumbar spine. Electronically signed by: Fela Wallace MD (07/10/2018 12:44 PM) [facility]
--- NOTE | 2018-07-10 12:48 | RAD ---
MRI Lumbar Spine without contrast History: Bilateral leg radiculopathy greater on the left Technique: Multiplanar, multi sequential noncontrast MR imaging was performed of the lumbar spine. Comparison: None Findings: There is some motion degradation Other than some scattered small Schmorl's nodes, lumbar vertebral body stature is overall maintained. There is negligible anterior spondylolisthesis L5-S1. Conus terminates at L1. There is fairly advanced degenerative disc disease at L4-5, to a somewhat lesser degree L1-2, L2-3, and L3-4, mild disc desiccation L5-S1. There is some edema of the anterior corners at L1-L2 probably reactive/degenerative in etiology. There is a focus of marrow signal change of the L3 vertebral body variably hyperintense on all sequences with associated trabecular thickening, likely hemangioma. There is mild lumbar dextroscoliosis. L1-L2: Spinal canal and neural foramina are adequate. L2-L3: There is moderate buckling of the ligamentum flavum and mild facet hypertrophic change. There is very shallow bulge somewhat greater in the left lateral recess, mild narrowing of the far left lateral recess. Neural foramina are adequate. L3-L4: There is very minimal disc osteophyte complex greater in the inferior left neural foramen. There is mild facet hypertrophic change and buckling of the ligamentum flavum. There is mild narrowing of the far left lateral recess. Neural foramina are overall adequate. L4-L5: There is negligible disc osteophyte complex and bulge. There is mild buckling of the ligament flavum and facet degenerative change. There is moderate narrowing of the far left lateral recess, mild to moderate narrowing of the right lateral recess, mild narrowing of the central canal. There is mild neural foramina compromise bilaterally greater on the left. L5-S1: There is mild buckling of the ligamentum flavum and [id number] facet degenerative change greater on the right. There is mild prominence of epidural fat greater posteriorly. Spinal canal is overall adequate. There is mild posterior narrowing of the right neural foramen, left neural foramen overall adequate. Impression: 1. There is moderate left greater than right lateral recess stenosis at L4-5. There is mild narrowing of the far left lateral recesses at L2-3 and L3-4. 2. There is multilevel lumbar degenerative disc disease greatest at L4-5. 3. There is mild neural foramina compromise bilaterally at L4-5 and on the right at L5-S1. 4. There is multilevel facet degenerative change, negligible anterior spondylolisthesis at L5-S1. Electronically signed by: Jonathan Oviedo MD (07/10/2018 12:45 PM) [id number]
== END | disposition home or self-care (01) ==
LOC: MRI 10:58
PROVIDERS: ATTEND Physical Medicine & Rehabilitation
DX: M51.37 Other intervertebral disc degeneration, lumbosacral region (principal); M51.16 Intervertebral disc disorders with radiculopathy, lumbar region; M43.17 Spondylolisthesis, lumbosacral region; M47.26 Other spondylosis with radiculopathy, lumbar region; M48.061 Spinal stenosis, lumbar region without neurogenic claudication; M16.12 Unilateral primary osteoarthritis, left hip; M89.38 Hypertrophy of bone, other site; G89.29 Other chronic pain
CPT/HCPCS: 72148; 73502; 73565